=== PATIENT | female | born 1980 | race African-American/Black ===

== ENCOUNTER 2020-01-25 09:45 | Outpatient (NON) | payer BC, SELFPAY ==
[2020-01-26 13:41] LABS: SARS-CoV-2 RNA PCR Positive
== END 2020-01-25 09:46 ==
PROVIDERS: Visit Provider Family Medicine
DX: U07.1 COVID-19 (principal)
CPT/HCPCS: 87635; C9803; U0003

== ENCOUNTER 2020-02-01 11:52 | Outpatient (NON) | payer BC, SELFPAY ==
[2020-02-02 13:37] LABS: SARS-CoV-2 RNA PCR Negative
== END 2020-02-01 11:53 ==
PROVIDERS: PCP Family Medicine; Visit Provider Family Medicine
DX: R09.89 Other specified symptoms and signs involving the circulatory and respiratory systems (principal); Z20.828 Contact with and (suspected) exposure to other viral communicable diseases
CPT/HCPCS: 87635; C9803; U0003